=== PATIENT | female | born 1965 | race Hispanic/Latino ===

== ENCOUNTER 2019-03-12 09:32 | Emergency (ER) | payer OTHER ==
[~2019-03-12] VITALS: Ht 157.5 cm; Wt 56.7 kg
[2019-03-12] MEDS ORDERED: LIDOCAINE HCL 1% LOCAL INJ 20 ML VIAL INJ ONE (09:45)
--- NOTE | 2019-03-12 09:52 | NUR ---
xray here to take pt down, pt too upset and dizzy at this time to go for xray. md aware. per md to let pt rest and calm down to be able to do testing.
--- NOTE | 2019-03-12 10:39 | Diagnostic Imaging Report ---
EXAMINATION: HAND 3+ VIEWS LEFT INDICATION: Trauma COMPARISON: None FINDINGS: There is a soft tissue defect at the distal tip of the left index digit with mild associated adjacent soft tissue swelling. No acute underlying fracture or dislocation. Alignment appears anatomic. No substantial degenerative change. IMPRESSION: Left distal index finger soft tissue defect without underlying acute osseous injury. Signed by: Jessy George MD on 03/12/2019 10:36 AM
[2019-03-12] MEDS ORDERED: BACITRACIN ZINC 0.9GM TP ONE ×2 (10:49→11:00)
== END 2019-03-12 11:00 | disposition home or self-care (01) ==
LOC: ER 09:32
DX: S61.211A Laceration without foreign body of left index finger without damage to nail, initial encounter (principal); W23.1XXA Caught, crushed, jammed, or pinched between stationary objects, initial encounter; Y92.008 Other place in unspecified non-institutional (private) residence as the place of occurrence of the external cause; E03.9 Hypothyroidism, unspecified
CPT/HCPCS: 99284